=== PATIENT | male | born 1995 | race Hispanic/Latino ===

== ENCOUNTER 2023-01-22 07:04 | Emergency (ER) | payer OTHER ==
[~2023-01-22] VITALS: Ht 172.7 cm; Wt 140.6 kg
[2023-01-22 07:06] VITALS: BP 152/100; PULSE 78; RESP 16
[2023-01-22] MEDS ORDERED: AMOX/CLAV 875/125MG TAB PO ONE (08:30)
[2023-01-22] MEDS ORDERED: KETOROLAC 60 MG VIAL (30MG/ML) IM ONE (08:30)
[2023-01-22] MEDS ORDERED: AMOX-427 PO (10:13)
[2023-01-22] MEDS ORDERED: ACET-2079 PO (10:13)
== END 2023-01-22 10:22 | disposition home or self-care (01) ==
LOC: EDH 07:04
DX: S02.5XXA Fracture of tooth (traumatic), initial encounter for closed fracture (principal); K05.10 Chronic gingivitis, plaque induced; I10 Essential (primary) hypertension; X58.XXXA Exposure to other specified factors, initial encounter; Y93.89 Activity, other specified; Y92.89 Other specified places as the place of occurrence of the external cause; Y99.8 Other external cause status
CPT/HCPCS: 99283; 96372; J1885